=== PATIENT | female | born 1995 | race Asian ===

== ENCOUNTER 2018-12-22 15:45 | Emergency (ER) | payer MEDICAID ==
[~2018-12-22] VITALS: Ht 160 cm; Wt 2.4 kg
[2018-12-22 15:55] VITALS: BP 138/82
[2018-12-22] MEDS ORDERED: predniSONE 20 MG TAB PO ONE (16:20)
[2018-12-22 16:36] VITALS: BP 138/82
== END 2018-12-22 16:35 | disposition home or self-care (01) ==
LOC: MED 15:45
DX: T78.40XA Allergy, unspecified, initial encounter (principal); X58.XXXA Exposure to other specified factors, initial encounter
CPT/HCPCS: 99283; J7512; Q0163